=== PATIENT | female | born 1950 | race Caucasian/White ===

== ENCOUNTER 2018-01-09 08:14 | Day surgery (SDC) | payer MEDICARE, OTHER ==
[~2018-01-09] VITALS: Ht 157.5 cm; Wt 76.1 kg
[2018-01-09] MEDS ORDERED: PROLIA60 MG/ML SQ (08:51)
[2018-01-09] MEDS ORDERED: TIROSINT125 MC1 PO (08:51)
[2018-01-09] MEDS ORDERED: TOPROL XL 50MG50 MG PO (08:52)
[2018-01-09] MEDS ORDERED: WELLBUTRIN SR150 M1 PO (08:52)
[2018-01-09 08:56] VITALS: BP 135/80; PULSE 68; TEMP 98.8
[2018-01-09 09:45] VITALS: BP 136/75; PULSE 72; TEMP 98.3
[2018-01-09 10:00] VITALS: BP 124/83; PULSE 70
[2018-01-09 12:37] VITALS: BP 124/76; PULSE 62
== END 2018-01-09 10:30 ==
LOC: SDCO 08:14
DX: Z12.11 Encounter for screening for malignant neoplasm of colon (principal); Z86.010 Personal history of colon polyps; D12.2 Benign neoplasm of ascending colon; D12.0 Benign neoplasm of cecum; I10 Essential (primary) hypertension; E78.00 Pure hypercholesterolemia, unspecified; E07.9 Disorder of thyroid, unspecified; J45.909 Unspecified asthma, uncomplicated
CPT/HCPCS: J2250; J3010; J7030

== ENCOUNTER → 2018-01-20 | Outpatient (CLI) | payer MEDICARE, OTHER ==
[~2018-01-20] MED LIST: PROLIA60 MG/ML SQ; TIROSINT125 MC1 PO; TOPROL XL 50MG50 MG PO; WELLBUTRIN SR150 M1 PO
== END ==
LOC: MC.RAD 08:16
DX: Z12.31 Encounter for screening mammogram for malignant neoplasm of breast (principal)

== ENCOUNTER 2019-01-29 14:56 | Outpatient (CLI) | payer MEDICARE, OTHER ==
[~2019-01-29] VITALS: Ht 157.5 cm; Wt 79.0 kg
[2019-01-29 15:11] VITALS: BP 154/80; PULSE 71; TEMP 98.6
[2019-01-29] MEDS ORDERED: LOPRESSOR 550 MG/TAB PO (15:14)
[2019-01-29] MEDS ORDERED: CALCIUM 600MG+D1 TAB PO (15:16)
--- NOTE | 2019-01-29 15:55 | NUR ---
Pt ana prolia well. Pt discharged per ambulation.
== END 2019-01-29 16:14 | disposition home or self-care (01) ==
LOC: EUO 14:56
DX: M81.0 Age-related osteoporosis without current pathological fracture (principal); Z79.899 Other long term (current) drug therapy
CPT/HCPCS: J0897

== ENCOUNTER 2019-08-09 14:52 | Outpatient (CLI) | payer MEDICARE, OTHER ==
[~2019-08-09] VITALS: Ht 157.5 cm; Wt 78.0 kg
[~2019-08-09 14:52] MED LIST changes: +CALCIUM 600MG+D1 TAB PO; +LOPRESSOR 550 MG/TAB PO
[2019-08-09 15:16] VITALS: BP 145/73; PULSE 66; TEMP 98.4
== END 2019-08-09 15:25 | disposition home or self-care (01) ==
LOC: EUO 14:52
DX: M81.0 Age-related osteoporosis without current pathological fracture (principal)
CPT/HCPCS: J0897

== ENCOUNTER → 2019-12-14 | Outpatient (CLI) | payer MEDICARE, OTHER | LOC: MC.RAD 14:30 | DX: Z12.31 Encounter for screening mammogram for malignant neoplasm of breast (principal) ==

== ENCOUNTER 2020-02-09 15:27 | Outpatient (CLI) | payer MEDICARE, OTHER ==
[~2020-02-09] VITALS: Ht 157.5 cm; Wt 79.1 kg
[2020-02-09 15:43] VITALS: BP 134/79; PULSE 78; TEMP 97.8
== END 2020-02-09 16:00 | disposition home or self-care (01) ==
LOC: EUO 15:27
DX: M81.0 Age-related osteoporosis without current pathological fracture (principal)
CPT/HCPCS: J0897

== ENCOUNTER 2020-08-14 11:03 | Outpatient (CLI) | payer MEDICARE, OTHER ==
[~2020-08-14] VITALS: Ht 157.5 cm; Wt 80.5 kg
[2020-08-14 11:11] VITALS: BP 103/74; PULSE 68; TEMP 98.1
== END 2020-08-14 11:32 | disposition home or self-care (01) ==
LOC: EUO 11:03
DX: M81.0 Age-related osteoporosis without current pathological fracture (principal)
CPT/HCPCS: J0897

== ENCOUNTER → 2021-01-08 | Outpatient (CLI) | payer MEDICARE, OTHER | LOC: COL.RAD 13:18 | DX: Z12.2 Encounter for screening for malignant neoplasm of respiratory organs (principal); F17.210 Nicotine dependence, cigarettes, uncomplicated ==

== ENCOUNTER 2021-02-14 13:58 | Outpatient (CLI) | payer MEDICARE, OTHER ==
[~2021-02-14] VITALS: Ht 157.5 cm; Wt 77.0 kg
[2021-02-14 14:38] VITALS: BP 146/79; PULSE 72; TEMP 98.6
== END 2021-02-14 14:47 ==
LOC: EUO 13:58
DX: M81.0 Age-related osteoporosis without current pathological fracture (principal)
CPT/HCPCS: J0897

== ENCOUNTER 2021-09-06 11:08 | Outpatient (CLI) | payer MEDICARE, OTHER ==
[~2021-09-06] VITALS: Ht 157.5 cm; Wt 78.7 kg
[2021-09-06 11:23] VITALS: BP 175/78; PULSE 70; TEMP 97.9
== END 2021-09-06 11:42 ==
LOC: EUO 11:08
DX: M81.0 Age-related osteoporosis without current pathological fracture (principal)
CPT/HCPCS: J0897

== ENCOUNTER → 2022-01-08 | Outpatient (CLI) | payer MEDICARE, OTHER | LOC: COL.VAS 12-20 09:30 | DX: Z12.2 Encounter for screening for malignant neoplasm of respiratory organs (principal); I65.23 Occlusion and stenosis of bilateral carotid arteries; R91.8 Other nonspecific abnormal finding of lung field; F17.210 Nicotine dependence, cigarettes, uncomplicated ==

== ENCOUNTER → 2022-02-18 | Outpatient (CLI) | payer MEDICARE, OTHER ==
[~2022-02-18] MED LIST changes: +LIPITOR 80MG80 MG PO; +NORVASC 5MG5 MG/TAB PO; +PRILOSEC 20MG20 MG PO
== END ==
LOC: COL.RAD 10:39
DX: I65.23 Occlusion and stenosis of bilateral carotid arteries (principal)
CPT/HCPCS: Q9967

== ENCOUNTER → 2022-03-05 | Outpatient (CLI) | payer MEDICARE, OTHER | LOC: MC.RAD 16:58 | DX: Z12.31 Encounter for screening mammogram for malignant neoplasm of breast (principal) ==

== ENCOUNTER 2022-03-07 15:02 | Outpatient (CLI) | payer MEDICARE, OTHER ==
[~2022-03-07] VITALS: Ht 157.5 cm; Wt 78.9 kg
[~2022-03-07 15:02] MED LIST changes: -LIPITOR 80MG80 MG PO; -NORVASC 5MG5 MG/TAB PO; -PRILOSEC 20MG20 MG PO
[2022-03-07] MEDS ORDERED: NORVASC 5MG5 MG/TAB PO (15:27)
[2022-03-07] MEDS ORDERED: PRILOSEC 20MG20 MG PO (15:27)
[2022-03-07] MEDS ORDERED: LIPITOR 80MG80 MG PO (15:28)
[2022-03-07 16:06] VITALS: BP 125/59; PULSE 64; TEMP 98.2
== END 2022-03-07 16:11 | disposition home or self-care (01) ==
LOC: EUO 15:02
DX: M81.0 Age-related osteoporosis without current pathological fracture (principal)
CPT/HCPCS: J0897

== ENCOUNTER → 2022-05-23 | Outpatient (CLI) | payer MEDICARE, OTHER ==
[~2022-05-23] MED LIST changes: +LIPITOR 80MG80 MG PO; +NORVASC 5MG5 MG/TAB PO; +PRILOSEC 20MG20 MG PO
== END ==
LOC: COL.RAD 08:35
DX: R22.1 Localized swelling, mass and lump, neck (principal); Z98.890 Other specified postprocedural states

== ENCOUNTER 2022-09-10 16:39 | Outpatient (CLI) | payer MEDICARE, OTHER ==
[2022-09-10 17:04] VITALS: BP 124/76; PULSE 65; TEMP 98.7
--- NOTE | 2022-09-10 17:09 | NUR ---
Pt tolerated prolia injection without issue. She exits dept with steady gait.
== END 2022-09-10 17:10 | disposition home or self-care (01) ==
LOC: EUO 16:39
DX: M81.0 Age-related osteoporosis without current pathological fracture (principal)
CPT/HCPCS: J0897

== ENCOUNTER → 2024-01-23 | Outpatient (CLI) | payer MEDICARE | LOC: COL.RAD 07:34 | DX: F17.200 Nicotine dependence, unspecified, uncomplicated (principal) ==

== ENCOUNTER 2024-04-23 08:13 | Outpatient (CLI) | payer MEDICARE ==
[~2024-04-23] VITALS: Ht 157.5 cm; Wt 74.5 kg
[2024-04-23 08:25] VITALS: BP 148/90; PULSE 60; TEMP 98
[2024-04-23] MEDS ORDERED: Denosumab 60 MG/ML SYRINGE SQ ONE (08:45)
--- NOTE | 2024-04-23 08:45 | NUR ---
PT TOLERATED INJECTION WELL. VS REMAINED WITHIN NORMAL LIMITS. PT AMBULATED TO [facility] UPON DISCHARGE. PT REMAINED FREE FROM ACUTE CONCERNS AND COMPLAINTS.
== END 2024-04-23 08:51 | disposition home or self-care (01) ==
LOC: EUO 08:13
DX: M81.0 Age-related osteoporosis without current pathological fracture (principal)
CPT/HCPCS: J0897